=== PATIENT | female | born 2000 | race Caucasian/White ===

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

== ENCOUNTER 2022-06-19 10:21 | Emergency (ER) | payer MEDICAID ==
[~2022-06-19] VITALS: Ht 157.5 cm; Wt 61.2 kg
[~2022-06-19 10:21] MED LIST changes: +ACET-8001 PO; -ACET-9500 PO; +ONDA-188 SL
[2022-06-19 10:23] VITALS: BP 132/74
--- NOTE | 2022-06-19 10:26 | NUR ---
PT W/C ASSISTED TO BED 3.
--- NOTE | 2022-06-19 10:43 | NUR ---
XRAY AT BEDSIDE
--- NOTE | 2022-06-19 11:08 | NUR ---
22YO FEMALE PT C/O 04/18 LEFT FOOT PAIN X3DAYS. STATES FALLING WHILE GOING DOWN STAIRS. DENIES INJURY TO HEAD OR LOC. PAIN AT MOST WHEN BEARING , DENIES TAKING MEDICATION. OUTER PART OF L FOOT PRESENTS WITH MILD SWELLING AND SMALL BRUISE ABOVE ANKLE, TENDER TO TOUCH. PT NOTED HEARING A "POP" AT TIME OF FALL AND WHEN WALKING . AMBULATORY W/ UNSTEADY GAIT. DENIES N/V/D, CHEST PAIN OR SOB. PT AAOX4, NO VISIBLE DISTRESS. RSPIRATIONS EVEN AND UNLABORED HX:DENIES NKA
[2022-06-19] MEDS ORDERED: KETO2CRE3 TP (11:16)
[2022-06-19] MEDS ORDERED: NAPR-1704 PO (11:16)
--- NOTE | 2022-06-19 11:35 | NUR ---
PLACED ANKLE STIRRUPS ON PT'S LEFT ANKLE. CMS INTACT PRIOR AND AFTER SPLINT APPLICATION. PT SET UP WITH CRUTCHES, ADJUSTED PROPERLY TO PT'S HEIGHT. ONE ON ONE INSTRUCTION ON PROPER CRUTCH USE CONDUCTED. PT SUCCESSFULLY DEMONSTRATED SAFE CRUTCH USE.
--- NOTE | 2022-06-19 11:40 | NUR ---
Patient discharged with v/s stable. Written and verbal after care instructions FOR FUNGAL NAIL INFECTION, ANKLE AND FOOT SPRAIN given and explained. Patient alert, oriented and verbalized understanding of instructions. Ambulatory USING CRUTCHES . All questions addressed prior to discharge. ID band removed. Patient advised to follow up with PMD. Rx of NAPROXEN AND KETOCONAZOLE given. Opportunity to ask questions provided and answered. WORK NOTE PROVIDED
--- NOTE | 2022-06-19 12:18 | NUR ---
The patient's care was reviewed and supervised by ED Agency Nurse 9, RN, RN.
== END 2022-06-19 11:40 | disposition home or self-care (01) ==
LOC: MED 10:21
DX: S93.402A Sprain of unspecified ligament of left ankle, initial encounter (principal); B35.1 Tinea unguium; Z79.899 Other long term (current) drug therapy; X58.XXXA Exposure to other specified factors, initial encounter; Y93.89 Activity, other specified; Y92.89 Other specified places as the place of occurrence of the external cause; Y99.8 Other external cause status
CPT/HCPCS: 29515; 73610; 73630; 99284

== ENCOUNTER 2022-11-12 11:52 | Emergency (ER) | payer MEDICAID ==
[~2022-11-12] VITALS: Ht 160 cm; Wt 57.2 kg
[~2022-11-12 11:52] MED LIST changes: +KETO2CRE3 TP; +NAPR-1704 PO
[2022-11-12 12:20] VITALS: BP 104/62
--- NOTE | 2022-11-12 12:23 | NUR ---
PT AMBULATED TO LOBBY
--- NOTE | 2022-11-12 13:00 | NUR ---
22/F WALKED IN C/O B/L LOWER EXT BRUISING, MORE PROMINENT TO RIGHT UPPER LEG ONSET 1 WK. DENIES FALL OR TRAUMA. AAO4, AMBULATORY, VITALS STABLE. NO ACUTE DISTRESS NOTED PMH: DENIES
--- NOTE | 2022-11-12 13:07 | NUR ---
FREDERIC REYES AT PT SIDE FOR EVAL
[2022-11-12 13:35] LABS: BASOPHILS % (AUTO) 0.5 % (0.0-2.0); EOSINOPHILS % (AUTO) 0.2 % (0.0-4.0); HEMATOCRIT 41.2 % (36-48); HEMOGLOBIN 14.1 g/dL (12.0-16.0); LYMPHOCYTES # (AUTO) 1.3 K/uL (2.5-16.5); MEAN CORPUSCULAR HEMOGLOBIN 29 pg (27-31); MEAN CORPUSCULAR HGB CONC 34 g/dL (33-37); MONOCYTES # (AUTO) 0.4 K/uL (0.8-1.0); MONOCYTES % (AUTO) 4.7 % (1.7-9.3); NEUTROPHILS # (AUTO) 6.1 K/uL (1.8-7.7); NEUTROPHILS % (AUTO) 77.6 % (42.2-75.2); PLATELET COUNT (AUTO) 243 K/uL (140-450); RED BLOOD CELL COUNT(AUTO) 4.84 MIL/uL (4.20-5.40); RED CELL DISTRIBUTION WIDTH 14.9 % (11.6-13.7); WHITE BLOOD COUNT (AUTO) 7.9 K/uL (4.5-11.0)
[2022-11-12 13:53] LABS: PROTHROMBIN TIME 11.4 secs (10.8-13.4)
[2022-11-12 13:56] LABS: ANION GAP 11.5 (8-16); CARBON DIOXIDE 27.3 mmol/L (21-32); CREATININE 0.8 mg/dL (0.6-1.3); POTASSIUM 3.8 mmol/L (3.5-5.1); TOTAL BILIRUBIN 0.8 mg/dL (0.0-1.0)
--- NOTE | 2022-11-12 14:15 | NUR ---
Patient discharged with v/s stable. Written and verbal after care instructions given and explained. Patient verbalized understanding. Ambulatory with steady gait. All questions addressed prior to discharge. Advised to follow up with PMD.
== END 2022-11-12 14:15 | disposition home or self-care (01) ==
LOC: MED 11:52
DX: S80.12XA Contusion of left lower leg, initial encounter (principal); S80.11XA Contusion of right lower leg, initial encounter; X58.XXXA Exposure to other specified factors, initial encounter; Y93.89 Activity, other specified; Y92.89 Other specified places as the place of occurrence of the external cause; Y99.8 Other external cause status
CPT/HCPCS: 36415; 80053; 81025; 85025; 85610; 85730; 99283